=== PATIENT | female | born 1980 | race Two or more races ===

== ENCOUNTER 2024-06-10 11:21 | Emergency (ER) | payer OTHER ==
[~2024-06-10] VITALS: Ht 154.9 cm; Wt 81.6 kg
[2024-06-10] MEDS ORDERED: KETOROLAC TROMETHAMINE 30 MG VIAL IV ONE ×2 (12:30→19:15)
[2024-06-10 12:48] LABS: HEMATOCRIT 40.7 % (36.0-45.00); HEMOGLOBIN 13.7 g/dL (12.0-15.00); MEAN CELL VOLUME 92.2 fL (80.00-100.00); MEAN CORPUSCULAR HEMOGLOBIN 31.1 pg (27.00-32.0); MEAN CORPUSCULAR HGB CONC 33.7 g/dl (32.0-36.0); PLATELET COUNT 183 K/uL (150-450); RED BLOOD COUNT 4.41 M/uL (4.00-6.00); RED CELL DISTRIBUTION WIDTH 15.2 % (11.5-14.5)
[2024-06-10 13:02] LABS: URINE APPEARANCE Clear; URINE BILIRRUBIN Negative (NEGATIVE); URINE BLOOD Trace; URINE COLOR Yellow; URINE GLUCOSE Negative (NEGATIVE); URINE LEUKOCYTE Negative; URINE NITRATE Negative; URINE PROTEIN Negative (NEGATIVE); URINE UROBILINOGEN 0.2 E.U./dl
[2024-06-10 13:05] LABS: URINE BACTERIA 171.2 uL (0.0-1933); URINE EPITHELIAL CELLS 11.2 uL (0.0-38.8); URINE RBC 24.1 uL (0.0-20.8)
[2024-06-10 13:12] LABS: CALCIUM 9.2 mg/dL (8.5-10.1); CREATININE SERUM 0.7 mg/dL (0.55-1.02); GFR 90.49; POTASSIUM 3.51 mEq/L (3.5-5.1)
[2024-06-10 13:47] LABS: URINE KETONE 40 (NEGATIVE)
[2024-06-10 17:42] LABS: AMYLASE 67 U/L (25-115); LIPASE 102 U/L (13-75)
== END 2024-06-10 19:19 | disposition home or self-care (01) ==
LOC: ER 11:23
PROVIDERS: Emergency Medicine
DX: R10.9 Unspecified abdominal pain (principal)
CPT/HCPCS: 36415; 74177; Q9965